=== PATIENT | male | born 1980 | race Hispanic/Latino ===

== ENCOUNTER 2017-06-09 23:53 | Emergency (ER) | payer OTHER ==
--- NOTE | 2017-06-10 07:58 | RAD ---
THREE VIEWS LEFT ANKLE: COMPARISON: None. HISTORY: Left ankle pain after twisting it coming down stairs. FINDINGS: Three views of the left ankle show moderate lateral soft tissue swelling. There is no evidence of a cute fracture or dislocation. No degenerative changes are seen. IMPRESSION: Soft tissue swelling without acute osseous abnormality. POS: SAM
== END 2017-06-10 00:33 | disposition home or self-care (01) ==
LOC: SCSER 23:53
DX: S93.402A Sprain of unspecified ligament of left ankle, initial encounter (principal); E03.9 Hypothyroidism, unspecified; E78.5 Hyperlipidemia, unspecified; I11.9 Hypertensive heart disease without heart failure; I42.9 Cardiomyopathy, unspecified; F17.210 Nicotine dependence, cigarettes, uncomplicated; Z95.0 Presence of cardiac pacemaker; Z79.899 Other long term (current) drug therapy; X58.XXXA Exposure to other specified factors, initial encounter

== ENCOUNTER 2017-10-09 08:56 | Outpatient (CLI) | payer OTHER ==
[2017-10-09 09:36] LABS: ALT (SGPT) 16 U/L (8-55); AST (SGOT) 16 U/L (5-34); Albumin 4.3 g/dL (3.5-5.0); Alkaline Phosphatase 48 U/L (40-150); Anion Gap 13 mmol/L (10-20); BUN (Urea Nitrogen) 14 mg/dL (8.9-20.6); Bilirubin, Total 0.5 mg/dL (0.2-1.2); CRP (Inflammatory) Less than 0.50 mg/dL (= or < 0.5); Calc. Creatinine Clearance 0 mL/min (70-130); Calcium 9.2 mg/dL (7.8-10.44); Carbon Dioxide 25 mmol/L (22-29); Cardiac Risk 3.9 (Less than 4.5); Chloride 108 mmol/L (98-107); Cholesterol 169 mg/dl (< 200 Desired); Estimated GFR-MDRD 88; Globulin 3.3 g/dL (2.4-3.5); Glucose 100 mg/dL (70-105); HDL Cholesterol 43 mg/dL (>60 Neg Risk); LDL Cholesterol, Calculated 100 mg/dL; Potassium 3.9 mmol/L (3.5-5.1); Protein, Total 7.6 g/dL (6.0-8.3); Sodium 142 mmol/L (136-145); Triglycerides 130 mg/dL (Less than 150); Uric Acid 8.3 mg/dL (3.5-7.2)
[2017-10-09 09:57] LABS: Free T4 (Free Thyroxine) 0.89 ng/dL (0.70-1.48); Thyroid Stimulating Hormone 8.8747 uIU/mL (0.35-4.94)
--- NOTE | 2017-10-09 10:20 | RAD ---
THORACIC SPINE RADIOGRAPHS: Date: 10-09-17 Provided Clinical History: Back pain. FINDINGS: Thoracic alignment appears normal. Vertebral body heights appear preserved. Pedicles appear intact. N o radiographically apparent lytic or blastic lesions are seen. Partially visualized cardiac pacing de vice wires. IMPRESSION: Unremarkable thoracic spine radiographs. POS: SAM
--- NOTE | 2017-10-09 10:27 | RAD ---
FOUR VIEWS OF THE LUMBAR SPINE: INDICATIONS: Right upper and lower back pain. FINDINGS: There is grade 1 anterolisthesis of L5 on S1 that is stable with flexion and extension. No additiona l abnormal region of translational motion is noted. There are five lumbar type vertebrae. Pars defe cts are seen at L5. The SI joints are normal appearing. IMPRESSION: Grade 1 spondylolisthesis of L5 on S1 with no abnormal translational motion. There are bilateral par s defects at L5. POS: SAM
== END 2017-10-09 08:57 | disposition home or self-care (01) ==
LOC: SCSRAD 08:56
PROVIDERS: ATTEND Family Medicine
DX: Z01.83 Encounter for blood typing (principal); M54.5 Low back pain; M10.00 Idiopathic gout, unspecified site; I10 Essential (primary) hypertension; F32.9 Major depressive disorder, single episode, unspecified; I42.9 Cardiomyopathy, unspecified; M43.17 Spondylolisthesis, lumbosacral region; M48.8X6 Other specified spondylopathies, lumbar region
CPT/HCPCS: 36415; 72072; 72110; 80053; 80061; 83880; 84439; 84443; 84481; 84550; 86140; 86900; 86901

== ENCOUNTER 2017-11-20 08:40 | Outpatient (CLI) | payer OTHER | END 2017-11-20 08:41 | disposition home or self-care (01) | LOC: BICCT 08:40 | PROVIDERS: ATTEND Neurological Surgery | DX: M43.16 Spondylolisthesis, lumbar region (principal); M51.26 Other intervertebral disc displacement, lumbar region; M48.061 Spinal stenosis, lumbar region without neurogenic claudication; M51.37 Other intervertebral disc degeneration, lumbosacral region; N20.0 Calculus of kidney | CPT/HCPCS: 72131 ==

== ENCOUNTER 2017-12-14 15:14 | Outpatient (CLI) | payer OTHER | END 2017-12-14 15:15 | disposition home or self-care (01) | LOC: LABBT 15:14 | PROVIDERS: ATTEND Neurological Surgery | DX: Z01.818 Encounter for other preprocedural examination (principal); M43.16 Spondylolisthesis, lumbar region | CPT/HCPCS: 93005; 93010 ==

== ENCOUNTER 2017-12-21 07:35 | Day surgery (SDC) | payer OTHER ==
[2017-12-14 15:30] VITALS: BMI 37.6
--- NOTE | 2017-12-21 07:42 | HP ---
HISTORY OF PRESENT ILLNESS: Mr. Gonzalez is a pleasant 37-year-old man, presenting for lower back p ain that he rates 3 constantly, but stiffness. He has no leg pains, nor has weakness. This is in the setting of an x-ray and CT scan from [place] that reveals grade 1 slip at L5-S1 with assoc iated bilateral pars defects. He was referred to us by Dr. Marino at [facility] who evaluated his condition and thought surgical consult was warranted which I do agree. He has been us ing [id number] pain medications as he does not like the feeling of narcotic medications. He ho pes to avoid surgery, but also understands that it may be necessary given his condition. PAST MEDICAL HISTORY: Seasonal allergies, gastric ulcer, hypothyroidism, hypertension, hypercholeste rolemia, bipolar disorder, hiatal hernia, cardiomyopathy. CURRENT MEDICATIONS: Include Lasix, carvedilol, testosterone, meloxicam, and atorvastatin. ALLERGIES: No known drug allergies. PAST SURGICAL HISTORY: Includes implanted AICD. PHYSICAL EXAMINATION: NEUROLOGIC: He is alert and oriented x3. Gait is mildly antalgic. EXTREMITIES: Lower extremity motor exam is normal. Reflexes are equal and present bilaterally at th e patella and Achilles. There is no sensory disturbance that I can determine. Straight leg raise is negative bilaterally. ASSESSMENT: Bilateral pars defects, back pain, and spondylolisthesis of the lumbar spine. PLAN: Dr. Davidson met with the patient, reviewed imaging and advocated for an L5-S1 facetectomy and fu elana. He explained to the patient the risks, benefits, and alternatives to the procedure. The patie nt expressed understanding and would like to move forward with surgery as discussed. I do believe e patient is mentally competent and capable of making medical decisions for himself and we will move forward with surgery as planned. Wu Hernandez PA-C, dictating under Dr. Davidson.
[2017-12-21] MEDS ORDERED: CEFAZOLIN/Water 2 GM/20 ML SYRINGE ONE ×2 (08:21→14:31)
[2017-12-21] MEDS ORDERED: Bupivacaine HCl 0.5%/Epinephrine 1:200,000/PF 30 ml Vial ONE (09:31)
[2017-12-21] MEDS ORDERED: Thrombin 5000 UNITS/5 ML VIAL ONE (09:32)
[2017-12-21] MEDS ORDERED: Fentanyl 250 MCG/5 ML VIAL ONE (09:45)
[2017-12-21] MEDS ORDERED: Fentanyl 100 MCG/2 ML VIAL ONE ×2 (12:14→13:35)
--- NOTE | 2017-12-21 12:45 | OP ---
DATE OF PROCEDURE: 12/21/2017 SURGEON: Anton Davidson M.D. [employer] OFFICER: Wu Hernandez PA-C INDICATION: Pain. DIAGNOSIS: Bilateral L5 pars fractures. PROCEDURES: Bilateral facetectomy, bilateral posterior lateral instrumented fusion at L5-S1, placeme nt of allograft, placement of autograft. ANESTHESIA: General. TECHNIQUE: The patient was brought into the operating room and placed under general anesthesia. He was flipped from a supine or prone position on the operating room table. A linear incision was plann ed over the L5-S1 segment. After prepping and draping and after an appropriate operative pause, the incision was created. The soft tissues were swept away from midline. Self-retaining retractors were placed in the wound for optimal exposure. After confirming the appropriate levels with serum fluoro scopy, the facet joint at L5-S1 were removed bilaterally. With the aid of C-arm fluoroscopy, pedicle screws were placed in the pedicles of L5-S1 bilaterally. An intraoperative 3D CT scan was then perf ormed to confirm appropriate placement. Rods were then placed across the screw heads and final tight ened. Allograft and autograft material was then placed within the lateral confines of the instrument ation construct. The wound was irrigated. Hemostasis was maintained throughout. The wound was then closed in anatomic layers and a pressure dressing was applied. There were no known procedural compl ications.
[2017-12-21] MEDS ORDERED: Tamsulosin HCl 0.4 MG CAP ONE (14:08)
[2017-12-21] MEDS ORDERED: HYDROcodone/Acetaminophen 7.5/325 mg Tablet ONE ×2 (14:18→14:45)
[2017-12-21] MEDS ORDERED: Ondansetron HCl/PF 4 MG/2 ML Vial ONE (16:12)
[2017-12-21] MEDS ORDERED: Dexamethasone 20 MG/5 ML VIAL ONE (16:12)
[2017-12-21] MEDS ORDERED: PROPOFOL 200 MG/20 ML VIAL ONE (16:12)
[2017-12-21] MEDS ORDERED: ePHEDrine/0.9% NaCl/PF SYRINGE 50 mg/10 ml ONE (16:12)
[2017-12-21] MEDS ORDERED: Glycopyrrolate 0.2 MG/ML 5 ML SYRINGE ONE (16:12)
== END 2017-12-21 14:59 | disposition home or self-care (01) ==
LOC: SDC 07:35
PROVIDERS: ATTEND Neurological Surgery
PROC: 0SG3071 Fusion of Lumbosacral Joint with Autologous Tissue Substitute, Posterior Approach, Posterior Column, Open Approach (ICD-10-PCS; principal; 2017-12-21)
DX: I10 Essential (primary) hypertension; Z79.1 Long term (current) use of non-steroidal anti-inflammatories (NSAID); G47.30 Sleep apnea, unspecified; S32.058A Other fracture of fifth lumbar vertebra, initial encounter for closed fracture; Z79.899 Other long term (current) drug therapy; I42.9 Cardiomyopathy, unspecified; M10.9 Gout, unspecified; F31.9 Bipolar disorder, unspecified; E78.00 Pure hypercholesterolemia, unspecified; F41.9 Anxiety disorder, unspecified; E03.9 Hypothyroidism, unspecified; J30.2 Other seasonal allergic rhinitis
CPT/HCPCS: 76001; 96374; C1713; J0670; J1100; J2405; J2704; J3010

== ENCOUNTER 2018-10-11 13:37 | Outpatient (CLI) | payer OTHER ==
[2018-10-11 13:52] LABS: #Basophils 0.1 thou/uL (0.0-0.2); #Eosinphils 0.1 thou/uL (0.0-0.7); #Lymphocytes 2.3 thou/uL (1.20-3.40); #Monocytes 0.6 thou/uL (0.11-0.59); #Neutrophils 5.2 thou/uL (1.40-6.50); %Basophils 0.8 % (0.0-1.0); %Eosinophils 1.8 % (0.0-10.0); %Monocytes 6.6 % (0.0-10.0); %Neutrophils 62.9 % (42.0-75.0); Hemoglobin 13.4 g/dL (14.0-18.0); Mean Corpuscular HGB CONC 31.5 g/dL (32.0-36.0); Mean Corpuscular Hemoglobin 28.3 pg (27.0-31.0); Mean Corpuscular Volume 89.8 fL (78.0-98.0); Mean Platelet Volume 8.9 fL (7.4-10.4); Platelet Count 310 thou/uL (130-400); RBC Distribution Width 12.6 % (11.5-14.5); Red Blood Cell (RBC) Count 4.74 mill/uL (4.70-6.10); White Blood Cell (WBC) Count 8.3 thou/uL (4.8-10.8)
[2018-10-11 14:06] LABS: ALT (SGPT) 27 U/L (8-55); AST (SGOT) 22 U/L (5-34); Albumin 4.7 g/dL (3.5-5.0); Alkaline Phosphatase 51 U/L (40-150); Anion Gap 17 mmol/L (10-20); BUN (Urea Nitrogen) 11 mg/dL (8.9-20.6); Bilirubin, Total 0.4 mg/dL (0.2-1.2); Calc. Creatinine Clearance 0 mL/min (70-130); Calcium 9.9 mg/dL (7.8-10.44); Carbon Dioxide 22 mmol/L (22-29); Chloride 105 mmol/L (98-107); Estimated GFR-MDRD 74; Globulin 3.7 g/dL (2.4-3.5); Glucose 95 mg/dL (70-105); Potassium 4.1 mmol/L (3.5-5.1); Protein, Total 8.4 g/dL (6.0-8.3); Sodium 140 mmol/L (136-145); Uric Acid 12.3 mg/dL (3.5-7.2)
--- NOTE | 2018-10-11 15:02 | RAD ---
RIGHT KNEE FOUR VIEWS: History: Right knee pain. FINDINGS: Joint spaces are preserved. No acute fracture, dislocation, or fluid distention of the suprapatellar bursa apparent. IMPRESSION: No acute osseous abnormalities are demonstrated. POS: SAM
--- NOTE | 2018-10-11 15:09 | RAD ---
LEFT ELBOW FOUR VIEWS: History: Elbow pain. Patient states he has rheumatoid arthritis. FINDINGS: Minimal spurring of the coronoid and olecranon are noted. No joint effusion. No erosive change or oth er signs of rheumatoid. IMPRESSION: Minimal arthritic changes of the elbow. POS: TPC
--- NOTE | 2018-10-11 15:10 | RAD ---
AP PELVIS: History: Pelvic pain. Patient reports history of rheumatoid arthritis. FINDINGS: Post-operative changes at the L5-S1 level are noted with bilateral pedicle screws. The pelvic ring it self is intact. SI joints are symmetric. Bony mineralization is normal. IMPRESSION: Post-operative change of the lower lumbar spine. No evidence for rheumatoid arthritis. POS: TPC
--- NOTE | 2018-10-11 15:41 | RAD ---
RADIOGRAPH LEFT SHOULDER 3 VIEWS: HISTORY: A 38-year-old male with rheumatoid arthritis experiencing left shoulder pain. FINDINGS: Joint spaces are maintained without erosions or large osteophytes. No subluxation or dislocation. N o fracture or destructive osseous lesion. No abnormal soft tissue calcifications. Left subclavian d ual-lead pacemaker. IMPRESSION: Negative. POS: YISEL
[2018-10-13 16:53] LABS: CCP IgG Antibody 0.7 EliAU/mL (<7 Negative); EliA RAS New Method **** NEW METHOD ****; Rheumatoid Factor IgA Antibody 2.6 IU/mL (<14 Negative); Rheumatoid Factor IgM Antibody 0.7 IU/mL (<3.5 Negative)
== END 2018-10-11 13:38 | disposition home or self-care (01) ==
LOC: SCSRAD 13:37
PROVIDERS: ATTEND Internal Medicine Rheumatology
DX: M25.522 Pain in left elbow (principal); M54.5 Low back pain; M19.022 Primary osteoarthritis, left elbow; Z98.890 Other specified postprocedural states
CPT/HCPCS: 36415; 72190; 80053; 82306; 83520; 84550; 85025; 86200; 86812

== ENCOUNTER 2020-07-03 07:47 | Outpatient (CLI) | payer OTHER ==
[2020-07-03 17:27] LABS: SARS-CoV-2 MS2 Positive; SARS-CoV-2 N Gene Negative; SARS-CoV-2 S Gene Negative; SARS-CoV-2 by NAA Not Detected (NotDetected); SARS-CoV-2 orf1ab Negative
== END 2020-07-03 07:48 | disposition home or self-care (01) ==
LOC: LABBT 07:47
PROVIDERS: ATTEND Internal Medicine Gastroenterology
DX: Z20.828 Contact with and (suspected) exposure to other viral communicable diseases (principal)
CPT/HCPCS: 87635; U0003

== ENCOUNTER 2020-07-06 06:13 | Day surgery (SDC) | payer OTHER ==
[2020-07-06] MEDS ORDERED: Fentanyl 100 MCG/2 ML VIAL ONE (06:55)
--- NOTE | 2020-07-06 08:52 | OP ---
DATE OF PROCEDURE: 07/06/2020 PROCEDURES PERFORMED: Esophagogastroduodenoscopy with biopsy and esophageal dilation over guidewire and colonoscopy. PREOPERATIVE DIAGNOSES: Gastroesophageal reflux and dysphagia and chronic nausea and vomiting and hematochezia. DESCRIPTION OF PROCEDURE: Informed consent was obtained from the patient. He was sedated with total intravenous anesthesia. The bite block was placed and the endoscope was advanced easily to the second portion of the duodenum and retroflexion was performed in the stomach. The esophagus was normal. The GE junction was normal. The stomach was normal including retroflexed views. The pylorus and first and second portions of the duodenum were normal. An 18 mm Savary dilator was passed through the esophagus without any change on second-look endoscopy. Biopsies were taken from the proximal and distal esophagus to rule out eosinophilic esophagitis. The patient was turned around. Rectal exam was performed and was normal. The preparation quality was good. The colonoscope was advanced to the terminal ileum without difficulty. The mucosa of the terminal ileum was normal. The ileocecal valve and appendiceal orifice were clearly identified. The colonic mucosa was normal throughout. Retroflexed views in the rectum were normal. IMPRESSION: 1. Normal esophagogastroduodenoscopy. Esophageal dilation to 18 mm with a Savary dilator over guidewire was performed with no change on second look. Proximal and distal esophageal biopsies were obtained to rule out eosinophilic esophagitis. 2. Normal ileal colonoscopy. RECOMMENDATIONS: 1. Await histopathology. 2. Follow up in GI Clinic. Job ID: [id number]
[2020-07-06] MEDS ORDERED: PROPOFOL 200 MG/20 ML VIAL ONE (09:50)
[2020-07-06] MEDS ORDERED: PHENYLEPHRINE-NS 100 MCG/ML 10 ML SYRINGE ONE (09:50)
== END 2020-07-06 09:38 | disposition home or self-care (01) ==
LOC: SDC 06:13
PROVIDERS: ATTEND Internal Medicine Gastroenterology
PROC: 0DB38ZX Excision of Lower Esophagus, Via Natural or Artificial Opening Endoscopic, Diagnostic (ICD-10-PCS; principal; 2020-07-06)
PROC: 0D758ZZ Dilation of Esophagus, Via Natural or Artificial Opening Endoscopic (ICD-10-PCS; principal; 2020-07-06)
PROC: 0DB18ZX Excision of Upper Esophagus, Via Natural or Artificial Opening Endoscopic, Diagnostic (ICD-10-PCS; principal; 2020-07-06)
PROC: 0DJD8ZZ Inspection of Lower Intestinal Tract, Via Natural or Artificial Opening Endoscopic (ICD-10-PCS; principal; 2020-07-06)
DX: K21.9 Gastro-esophageal reflux disease without esophagitis (principal); R13.10 Dysphagia, unspecified; R11.2 Nausea with vomiting, unspecified; K92.1 Melena; I10 Essential (primary) hypertension; E78.5 Hyperlipidemia, unspecified; E03.9 Hypothyroidism, unspecified; G47.30 Sleep apnea, unspecified; F32.9 Major depressive disorder, single episode, unspecified; F41.9 Anxiety disorder, unspecified; M10.9 Gout, unspecified; Z79.899 Other long term (current) drug therapy; Z95.810 Presence of automatic (implantable) cardiac defibrillator
CPT/HCPCS: 88305; 88312; 88313; J2704; J3010

== ENCOUNTER 2020-12-19 14:02 | Outpatient (CLI) | payer OTHER | END 2020-12-19 14:03 | disposition home or self-care (01) | LOC: SCSRAD 14:02 | PROVIDERS: ATTEND Family Medicine | DX: R07.89 Other chest pain (principal) | CPT/HCPCS: 71046 ==

== ENCOUNTER 2022-04-17 15:50 | Outpatient (CLI) | payer BC | END 2022-04-17 15:51 | disposition home or self-care (01) | LOC: DTY/OP 15:50 | PROVIDERS: ATTEND Surgery | DX: Z01.818 Encounter for other preprocedural examination (principal); E66.01 Morbid (severe) obesity due to excess calories; E22.1 Hyperprolactinemia; R79.89 Other specified abnormal findings of blood chemistry; D64.9 Anemia, unspecified; K21.9 Gastro-esophageal reflux disease without esophagitis; G47.33 Obstructive sleep apnea (adult) (pediatric); E78.5 Hyperlipidemia, unspecified; E53.8 Deficiency of other specified B group vitamins; E61.1 Iron deficiency; I10 Essential (primary) hypertension; Z68.41 Body mass index [BMI] 40.0-44.9, adult | CPT/HCPCS: 97802 ==

== ENCOUNTER 2022-11-06 09:15 | Outpatient (CLI) | payer BC ==
[2022-11-06 11:47] LABS: #Eosinphils 0.2 thou/uL (0.0-0.7); #Lymphocytes 2.3 thou/uL (1.20-3.40); #Monocytes 0.5 thou/uL (0.11-0.59); #Neutrophils 5.2 thou/uL (1.40-6.50); %Basophils 0.1 % (0.0-1.0); %Eosinophils 2.1 % (0.0-10.0); %Lymphocytes 27.9 % (21.0-51.0); %Monocytes 5.9 % (0.0-10.0); %Neutrophils 64.1 % (42.0-75.0); Hemoglobin 12.8 g/dL (14.0-18.0); Mean Corpuscular HGB CONC 32.3 g/dL (32.0-36.0); Mean Corpuscular Hemoglobin 31.1 pg (27.0-31.0); Mean Corpuscular Volume 96.1 fl (78.0-98.0); Mean Platelet Volume 8.9 fL (7.4-10.4); Platelet Count 264 10x3/uL (130-400); RBC Distribution Width 12.5 % (11.5-14.5); Red Blood Cell (RBC) Count 4.12 mill/uL (4.70-6.10); White Blood Cell (WBC) Count 8.1 10x3/uL (4.8-10.8)
[2022-11-06 11:56] LABS: ALT (SGPT) 16 U/L (8-55); AST (SGOT) 16 U/L (5-34); Albumin 4.2 g/dL (3.5-5.0); Alkaline Phosphatase 60 U/L (40-110); Anion Gap 14 mmol/L (10-20); BUN (Urea Nitrogen) 15 mg/dL (8.9-20.6); Bilirubin, Total 0.4 mg/dL (0.2-1.2); CRP (Inflammatory) Less than 0.50 mg/dL (= or < 0.5); Calc. Creatinine Clearance 0 mL/min (70-130); Calcium 9.1 mg/dL (7.8-10.44); Carbon Dioxide 25 mmol/L (22-29); Chloride 105 mmol/L (98-107); Estimated GFR 77; Globulin 2.8 g/dL (2.4-3.5); Glucose 200 mg/dL (70-105); Potassium 4.5 mmol/L (3.5-5.1); Sodium 139 mmol/L (136-145); Uric Acid 5.1 mg/dL (3.5-7.2)
== END 2022-11-06 09:16 | disposition home or self-care (01) ==
LOC: SCSRAD 09:15
DX: M54.9 Dorsalgia, unspecified (principal); Z87.39 Personal history of other diseases of the musculoskeletal system and connective tissue
CPT/HCPCS: 36415; 72202; 80053; 81374; 84550; 85025; 85652; 86140

== ENCOUNTER 2022-11-20 11:58 | Emergency (ER) | payer BC ==
[2022-11-20] MEDS ORDERED: Ketorolac Tromethamine 30 MG/ML VIAL ONE (12:42)
== END 2022-11-20 13:43 | disposition home or self-care (01) ==
LOC: ERS 11:58
DX: S82.402A Unspecified fracture of shaft of left fibula, initial encounter for closed fracture (principal); S70.12XA Contusion of left thigh, initial encounter; S90.01XA Contusion of right ankle, initial encounter; W22.8XXA Striking against or struck by other objects, initial encounter
CPT/HCPCS: 96372; J1885

== ENCOUNTER 2024-03-29 08:13 | Outpatient (CLI) | payer BC | END 2024-03-29 08:14 | disposition home or self-care (01) | LOC: MRI 08:13 | PROVIDERS: ATTEND Physician Assistant | DX: M47.26 Other spondylosis with radiculopathy, lumbar region (principal); M47.815 Spondylosis without myelopathy or radiculopathy, thoracolumbar region; M47.817 Spondylosis without myelopathy or radiculopathy, lumbosacral region; Z98.890 Other specified postprocedural states | CPT/HCPCS: 72158 ==